=== PATIENT | female | born 1980 | race Caucasian/White ===

== ENCOUNTER 2016-08-12 12:18 | Emergency (ER) | payer OTHER ==
[~2016-08-12] VITALS: Ht 162.6 cm; Wt 62.0 kg
[~2016-08-12 12:18] MED LIST: BUSP1TAB PO; PERC5TAB12 PO; WELLTAB39 PO; XANA1TAB2 PO
[2016-08-12 12:22] VITALS: BP 123/78; PULSE 106; RESP 16; TEMP 98.1; O2SAT 95
[2016-08-12 15:42] VITALS: BP 113/71; PULSE 102; RESP 18; O2SAT 98
[2016-08-12] MEDS ORDERED: SODIUM CHLORIDE 0.9% FLUSH 5 ML FLUSH IVF PRN (16:15)
[2016-08-12] MEDS ORDERED: LORazepam 2 MG/ML VIAL IV PUSH ONE (16:15)
[2016-08-12 16:22] VITALS: RESP 18; O2SAT 97
[2016-08-12 16:35] LABS: BASOPHIL % 0.6 % (0.0-2.0); EOSINOPHIL % 0.6 % (0.0-4.0); HEMATOCRIT 36.3 % (35.0-46.0); HEMO FLAGS DIFF FINAL; LYMPH % 15.3 % (9.0-44.0); LYMPHOCYTE # 0.9 TH/MM3 (1.0-4.8); MEAN CORPUSCULAR HGB CONC 34.7 % (32.0-36.0); MONO % 5.6 % (0.0-8.0); NEUT % 77.9 % (16.0-70.0); PLATELET COUNT 229 TH/MM3 (150-450); RED BLOOD COUNT 3.82 MIL/MM3 (4.00-5.30); RED CELL DISTRIBUTION WIDTH 14.7 % (11.6-17.2); WHITE BLOOD COUNT 6.2 TH/MM3 (4.0-11.0)
--- NOTE | 2016-08-12 16:40 | RADHPO ---
EXAM DATE/TIME: 08/12/2016 16:19 [facility] COMPARISON: No previous studies available for comparison. INDICATIONS : Increased heart rate with shortness of breath. MEDICAL HISTORY : anxiety SURGICAL HISTORY : None. ENCOUNTER: Initial ACUITY: 1 day PAIN SCORE: 6/10 LOCATION: Bilateral upper chest FINDINGS: A single view of the chest demonstrates the lungs to be symmetrically aerated without evidence of mas s, infiltrate or effusion. The cardiomediastinal contours are unremarkable. Osseous structures are intact. CONCLUSION: No acute disease. Cole Bowers MD on August 12, 2016 at 16:38 Board Certified Radiologist. This report was verified electronically.
[2016-08-12 16:44] LABS: CHLORIDE 99 MEQ/L (98-107); POTASSIUM 3.9 MEQ/L (3.5-5.1); SODIUM (NA) 134 MEQ/L (136-145)
[2016-08-12 16:45] VITALS: BP_SYST 109; BP_DIAS 72; BP_DIAS 78; PULSE 84; RESP 16; O2SAT 95
[2016-08-12 16:47] LABS: ANION GAP 9 MEQ/L (5-15); BICARBONATE 25.8 MEQ/L (21.0-32.0); BLOOD UREA NITROGEN 7 MG/DL (7-18); MAGNESIUM 1.7 MG/DL (1.5-2.5)
[2016-08-12 16:48] LABS: APTT (PATIENT) 29.2 SEC (24.3-30.1); PROTHROMBIN TIME - PATIENT 10.5 SEC (9.8-11.6)
[2016-08-12 16:51] LABS: GLOMERULAR FILTRATION RATE 98 ML/MIN (>89)
[2016-08-12 17:00] LABS: CREATINE KINASE 100 U/L (26-192)
--- NOTE | 2016-08-12 17:15 | PD ---
HPI . Chest pain Chief Complaint: Cardiac Complaint Time Seen by Provider: 16:06 Travel History International Travel<30 days: No Contact w/Intl Traveler<30days: No Traveled to known affect area: No History of Present Illness HPI Patient presents with chief complaint of chest pain, palpitations, dizziness, shakiness sweating. Onset of symptoms was this morning. She reports previous similar symptoms. She reports no obvious exacerbating or relieving factors. [id number]: Chest DURATION: Today TIMING: Intermittent MODIFYING FACTORS: None PFSH Past Medical History Anxiety: Yes Depression: Yes Diminished Hearing: No Neurologic: Yes ("CONVERSION DISORDER") Thyroid Disease: Yes (PER PT) Tetanus Vaccination: > 5 Years Influenza Vaccination: No ?: Not LMP: 3 WEEKS AGO Past Surgical History Other Surgery: Yes (BREAST IMPLANTS) Social History Alcohol Use: Yes (1 BOTTLE WINE/DAILY) Tobacco Use: Yes (E-CIG, DAILY) Substance Use: Yes (MARIJUANA DAILY; LAST USED 08/08/16) Allergies-Medications (Allergen,Severity, Reaction): Uncoded Allergies: COLORED DYE (Allergy, Intermediate, RASH, 08/12/16) Reported Meds & Prescriptions Reported Meds & Active Scripts Active Percocet (Oxycodone-Acetaminophen) 5-325 mg Tab 1 Tab PO Q6H PRN Reported Wellbutrin Xl 24 HR (Bupropion HCl) 300 Mg Tab 300 Mg PO DAILY Buspirone (Buspirone HCl) 7.5 Mg Tab 7.5 Mg PO BID Xanax (Alprazolam) 1 Mg Tab 0.5 Mg PO BID Review of Systems Except as stated in HPI: all other systems reviewed are Neg Cardiovascular: Positive: Chest Pain or Discomfort, Palpitations Respiratory: Positive: Shortness of Breath Neurologic: Positive: Tremor Psychiatric: Positive: Anxiety Physical Exam Narrative GENERAL: Anxious appearing young woman in no acute distress. SKIN: Warm and dry. HEAD: Atraumatic. Normocephalic. EYES: Pupils equal and round. ENT: No nasal bleeding or discharge. Mucous membranes pink and moist. NECK: Trachea midline. Neck is supple. CARDIOVASCULAR: Regular rate and rhythm. Heart sounds are normal. RESPIRATORY: No accessory muscle use. Lungs are clear with full air movement throughout. GASTROINTESTINAL: Abdomen soft, non-tender, nondistended. MUSCULOSKELETAL: No obvious deformities. No edema. NEUROLOGICAL: Awake and alert. No obvious cranial nerve deficits. Motor grossly within normal limits. Normal speech. PSYCHIATRIC: Anxious appearing; insight and judgment normal. Data Data Last Documented VS Vital Signs Date Time Temp Pulse Resp B/P Pulse Ox O2 Delivery O2 Flow Rate FiO2 08/12/16 16:45 84 16 109/72 95 Room Air 109/78 08/12/16 12:22 98.1 Orders Electrocardiogram (08/12/16 12:31) Basic Metabolic Panel (Bmp) (08/12/16 16:07) Ckmb (Isoenzyme) Profile (08/12/16 16:07) Complete Blood Count With Diff (08/12/16 16:07) Magnesium (Mg) (08/12/16 16:07) Prothrombin Time / Inr (Pt) (08/12/16 16:07) Act Partial Throm Time (Ptt) (08/12/16 16:07) Troponin I (08/12/16 16:07) Chest, Single Ap (08/12/16 16:07) Ecg Monitoring (08/12/16 16:07) Bilateral Bp Monitoring (08/12/16 16:07) Iv Access Insert/Monitor (08/12/16 16:07) Oximetry (08/12/16 16:07) Oxygen Administration (08/12/16 16:07) Sodium Chloride 0.9% Flush (Ns Flush) (08/12/16 16:15) Lorazepam Inj (Ativan Inj) (08/12/16 16:15) Thyroid Stimulating Hormone (08/12/16 16:07) Labs Laboratory Tests Test 08/12/16 16:10 White Blood Count 6.2 TH/MM3 Red Blood Count 3.82 MIL/MM3 Hemoglobin 12.6 GM/DL Hematocrit 36.3 % Mean Corpuscular Volume 95.0 FL Mean Corpuscular Hemoglobin 33.0 PG Mean Corpuscular Hemoglobin 34.7 % Concent Red Cell Distribution Width 14.7 % Platelet Count 229 TH/MM3 Mean Platelet Volume 8.1 FL Neutrophils (%) (Auto) 77.9 % Lymphocytes (%) (Auto) 15.3 % Monocytes (%) (Auto) 5.6 % Eosinophils (%) (Auto) 0.6 % Basophils (%) (Auto) 0.6 % Neutrophils # (Auto) 5.0 TH/MM3 Lymphocytes # (Auto) 0.9 TH/MM3 Monocytes # (Auto) 0.3 TH/MM3 Eosinophils # (Auto) 0.0 TH/MM3 Basophils # (Auto) 0.0 TH/MM3 CBC Comment DIFF FINAL Differential Comment Prothrombin Time 10.5 SEC Prothromb Time International 1.0 RATIO Ratio Activated Partial 29.2 SEC Thromboplast Time Sodium Level 134 MEQ/L Potassium Level 3.9 MEQ/L Chloride Level 99 MEQ/L Carbon Dioxide Level 25.8 MEQ/L Anion Gap 9 MEQ/L Blood Urea Nitrogen 7 MG/DL Creatinine 0.68 MG/DL Estimat Glomerular Filtration 98 ML/MIN Rate Random Glucose 125 MG/DL Calcium Level 8.5 MG/DL Magnesium Level 1.7 MG/DL Total Creatine Kinase 100 U/L Troponin I LESS THAN 0.02 NG/ML Thyroid Stimulating Hormone 0.711 uIU/ML 3rd Gen [facility] Medical Decision Making Medical Screen Exam Complete: Yes Emergency Medical Condition: Yes Interpretation(s) EKG showed a sinus rhythm with no acute ischemic changes. She had a lot of artifact. Differential Diagnosis Differential diagnosis of chest pain includes but is not limited to musculoskeletal pain, pulmonary embolism, acute coronary syndrome, pneumonia, pleurisy Narrative Course Patient presents for chest pain, palpitations, dizziness, shakiness, sweating CBC & BMP Diagram 08/12/16 16:10 Cardiac enzymes are negative. TSH is normal. Chest x-ray is negative. I have personally reviewed the chest x-ray. Diagnosis Primary Impression: Chest pain Qualified Code: R07.9 - Chest pain, unspecified type Additional Impressions: Palpitations Anxiety disorder Qualified Code: F41.1 - Generalized anxiety disorder Patient Instructions: Anxiety (DC), General Instructions Disposition: 01 DISCHARGE HOME Condition: Stable Laura Carrington MD Aug 12, 2016 17:15
[2016-08-12 17:45] VITALS: BP 116/70; PULSE 84; RESP 16; O2SAT 98
--- NOTE | 2016-08-14 07:22 | EKG ---
Date Performed: 08/12/2016 Time Performed: 12:31:52 PTAGE: 36 years EKG: Sinus tachycardia Poor R wave progression - probable normal variant Low QRS voltages in pre cordial leads Compared to prior tracing no significant change although there is significant artifact. Recommend repeat tracing. Borderline ECG PREVIOUS TRACING : 01/14/2016 16.43 DOCTOR: Reilly Wagner Interpretating Date/Time 08/14/2016 07:21:16
== END 2016-08-12 18:34 | disposition home or self-care (01) ==
LOC: PHED 12:18
DX: R07.9 Chest pain, unspecified (principal); R00.2 Palpitations; F41.9 Anxiety disorder, unspecified; R00.0 Tachycardia, unspecified; R06.02 Shortness of breath
CPT/HCPCS: 71010; 80048; 82550; 83735; 84443; 84484; 85025; 85610; 85730; 93005; 96374; 99285; J2060

== ENCOUNTER 2016-10-13 06:00 | Emergency (ER) | payer OTHER ==
[~2016-10-13] VITALS: Ht 165.1 cm; Wt 58.9 kg
[2016-10-13 06:08] VITALS: BP 109/73; PULSE 134; RESP 16; TEMP 99.3; O2SAT 98
[2016-10-13] MEDS ORDERED: SODIUM CHLOR 0.9% 1000 ML INJ 1,000 ML IV SCH ×2 (06:23→06:45)
[2016-10-13] MEDS ORDERED: SODIUM CHLORIDE 0.9% FLUSH 10 ML FLUSH IV FLUSH PRN (06:30)
[2016-10-13] MEDS ORDERED: ONDANSETRON HCL 4 MG/2 ML VIAL IVP ONE (06:30)
[2016-10-13] MEDS ORDERED: PANTOPRAZOLE SODIUM 40 MG VIAL IVP ONE (06:30)
[2016-10-13] MEDS ORDERED: FAMOTIDINE 20 MG/2 ML VIAL IV PUSH ONE (06:30)
[2016-10-13] MEDS ORDERED: CLON.5 PO (06:31)
[2016-10-13] MEDS ORDERED: ZOLO25TA PO (06:31)
[2016-10-13] MEDS ORDERED: PRAZ1CAP PO (06:31)
[2016-10-13] MEDS ORDERED: BUSP5TAB PO (06:31)
--- NOTE | 2016-10-13 06:31 | PD ---
HPI Chief Complaint: Abdominal Pain Time Seen by Provider: 06:23 Travel History International Travel<30 days: No Contact w/Intl Traveler<30days: No Traveled to known affect area: No History of Present Illness HPI The patient is a 36-year-old female that complains of nausea, vomiting, possible fever and global headache for 4 hours. She has had loose stools for 2 days. She states she gets epigastric pain with vomiting. She states she drank a bottle and a half of wine earlier this evening. The patient states she does not believe she is although she does not use control. She has never had abdominal surgeries. She denies vomiting any blood. She denies any blood in her stool. [facility] Past Medical History Anxiety: Yes Depression: Yes Diminished Hearing: No Neurologic: Yes ("CONVERSION DISORDER") Thyroid Disease: Yes (PER PT) ?: Not LMP: 09/13/2016 Past Surgical History Other Surgery: Yes (BREAST IMPLANTS) Social History Alcohol Use: Yes (1 BOTTLE WINE/DAILY) Tobacco Use: Yes (E-CIG, DAILY) Substance Use: Yes (MARIJUANA DAILY; LAST USED 08/08/16) Allergies-Medications (Allergen,Severity, Reaction): Uncoded Allergies: COLORED DYE (Allergy, Intermediate, RASH, 08/12/16) Reported Meds & Prescriptions Reported Meds & Active Scripts Active Reported Klonopin (Clonazepam) 0.5 Mg Tab 0.5 Mg PO BID Prazosin (Prazosin HCl) 1 Mg Cap 1 Mg PO BID Zoloft (Sertraline HCl) 25 Mg Tab 25 Mg PO DAILY Buspirone (Buspirone HCl) 5 Mg Tab 5 Mg PO BID Review of Systems Except as stated in HPI: all other systems reviewed are Neg Physical Exam Narrative GENERAL: The patient is alert, oriented 3 and slight apparent distress with her midline epigastric discomfort. Her temperature is 99.3 with heart rate of 134 but the rest of her vital signs are normal. She does appear to be mildly dehydrated. SKIN: Focused skin assessment warm/dry. HEAD: Atraumatic. Normocephalic. EYES: Pupils equal and round. No scleral icterus. No injection or drainage. ENT: No nasal bleeding or discharge. Mucous membranes pink and slightly dry. NECK: Trachea midline. No JVD. CARDIOVASCULAR: Regular rate and rhythm. No murmur appreciated. RESPIRATORY: No accessory muscle use. Clear to auscultation. Breath sounds equal bilaterally. GASTROINTESTINAL: Abdomen soft, with tenderness to direct palpation in the midline epigastrium, nondistended. Hepatic and splenic margins not palpable. No guarding or rebound is present. MUSCULOSKELETAL: No obvious deformities. No clubbing. No cyanosis. No edema. NEUROLOGICAL: Awake and alert. No obvious cranial nerve deficits. Motor grossly within normal limits. Normal speech. PSYCHIATRIC: Appropriate mood and affect; insight and judgment normal. Data Data Last Documented VS Vital Signs Date Time Temp Pulse Resp B/P Pulse Ox O2 Delivery O2 Flow Rate FiO2 10/13/16 06:20 10/13/16 06:08 99.3 134 16 98 Orders Alcohol (Ethanol) (10/13/16 06:23) Complete Blood Count With Diff (10/13/16 06:23) Comprehensive Metabolic Panel (10/13/16 06:23) Lipase (10/13/16 06:23) Iv Access Insert/Monitor (10/13/16 06:23) Ecg Monitoring (10/13/16 06:23) Oximetry (10/13/16 06:23) Sodium Chloride 0.9% Flush (Ns Flush) (10/13/16 06:30) Urinalysis - C+S If Indicated (10/13/16 06:23) Ondansetron Inj (Zofran Inj) (10/13/16 06:30) Pantoprazole Inj (Protonix Inj) (10/13/16 06:30) Sodium Chlor 0.9% 1000 Ml Inj (Ns 1000 M (10/13/16 06:23) Sodium Chloride 0.9% Flush (Ns Flush) (10/13/16 06:30) Famotidine Inj (Pepcid Inj) (10/13/16 06:30) Sodium Chlor 0.9% 1000 Ml Inj (Ns 1000 M (10/13/16 06:45) Beta Hcg (Quant/Titer) (10/13/16 06:23) Acetaminophen (Tylenol) (10/13/16 07:00) Urine Culture (10/13/16 06:40) Labs Laboratory Tests Test 10/13/16 10/13/16 06:20 06:40 White Blood Count 9.4 TH/MM3 Red Blood Count 3.72 MIL/MM3 Hemoglobin 12.6 GM/DL Hematocrit 38.6 % Mean Corpuscular Volume 103.8 FL Mean Corpuscular Hemoglobin 33.9 PG Mean Corpuscular Hemoglobin 32.7 % Concent Red Cell Distribution Width 14.7 % Platelet Count 263 TH/MM3 Mean Platelet Volume 7.7 FL Neutrophils (%) (Auto) 88.2 % Lymphocytes (%) (Auto) 4.3 % Monocytes (%) (Auto) 4.1 % Eosinophils (%) (Auto) 0.6 % Basophils (%) (Auto) 2.8 % Neutrophils # (Auto) 8.2 TH/MM3 Lymphocytes # (Auto) 0.4 TH/MM3 Monocytes # (Auto) 0.4 TH/MM3 Eosinophils # (Auto) 0.1 TH/MM3 Basophils # (Auto) 0.3 TH/MM3 CBC Comment DIFF FINAL Differential Comment Sodium Level 139 MEQ/L Potassium Level 3.7 MEQ/L Chloride Level 104 MEQ/L Carbon Dioxide Level 24.8 MEQ/L Anion Gap 10 MEQ/L Blood Urea Nitrogen 7 MG/DL Random Glucose 94 MG/DL Calcium Level 8.6 MG/DL Albumin 4.4 GM/DL Lipase 66 U/L Urine Collection Type CLEAN CATCH Urine Color YELLOW Urine Turbidity SLIGHTY CLOUDY Urine pH 6.0 Urine Specific [place] 1.015 Urine Protein TRACE mg/dL Urine Glucose (UA) NEG mg/dL Urine Ketones NEG mg/dL Urine Occult Blood TRACE Urine Nitrite POS Urine Bilirubin NEG Urine Leukocyte Esterase SMALL Urine RBC 0-3 /hpf Urine WBC 9-14 /hpf Urine Squamous Epithelial 0-5 /hpf Cells Urine Bacteria MANY /hpf Microscopic Urinalysis Comment CULTURE INDICATED MDM Medical Decision Making Medical Screen Exam Complete: Yes Emergency Medical Condition: Yes Medical Record Reviewed: Yes Differential Diagnosis Gastroenteritis, gastritis, cholecystitis, pancreatitis, dehydration, electrolyte disorder, Narrative Course It is now 0714 and the patient is transferred to Dr. Beard. Mo Kraus MD October 13, 2016 06:31
[2016-10-13 06:57] LABS: AUTOMATED NEUTROPHIL # 8.2 TH/MM3 (1.8-7.7); BASOPHIL # 0.3 TH/MM3 (0-0.2); BASOPHIL % 2.8 % (0.0-2.0); CHLORIDE 104 MEQ/L (98-107); EOSINOPHIL # 0.1 TH/MM3 (0-0.4); EOSINOPHIL % 0.6 % (0.0-4.0); HEMATOCRIT 38.6 % (35.0-46.0); HEMO FLAGS DIFF FINAL; LYMPH % 4.3 % (9.0-44.0); LYMPHOCYTE # 0.4 TH/MM3 (1.0-4.8); MEAN CELL VOLUME 103.8 FL (80.0-100.0); MEAN CORPUSCULAR HEMOGLOBIN 33.9 PG (27.0-34.0); MEAN CORPUSCULAR HGB CONC 32.7 % (32.0-36.0); MONO % 4.1 % (0.0-8.0); NEUT % 88.2 % (16.0-70.0); PLATELET COUNT 263 TH/MM3 (150-450); POTASSIUM 3.7 MEQ/L (3.5-5.1); RED BLOOD COUNT 3.72 MIL/MM3 (4.00-5.30); RED CELL DISTRIBUTION WIDTH 14.7 % (11.6-17.2); SODIUM (NA) 139 MEQ/L (136-145); WHITE BLOOD COUNT 9.4 TH/MM3 (4.0-11.0)
[2016-10-13 07:00] LABS: ANION GAP 10 MEQ/L (5-15); BICARBONATE 24.8 MEQ/L (21.0-32.0)
[2016-10-13] MEDS ORDERED: ACETAMINOPHEN 325 MG TAB PO ONE (07:00)
[2016-10-13 07:01] LABS: BLOOD UREA NITROGEN 7 MG/DL (7-18)
[2016-10-13 07:02] LABS: BLOOD, URINE TRACE (NEG); GLUCOSE,URINE NEG (NEG); KETONE, URINE NEG (NEG)
[2016-10-13 07:03] LABS: METHOD OF COLLECTION CLEAN CATCH; NITRITE,URINE POS (NEG); URINE COLOR YELLOW (YELLW/STRAW)
[2016-10-13 07:04] LABS: ALT (GPT) 23 U/L (10-53); AST (GOT) 22 U/L (15-37); GLOMERULAR FILTRATION RATE 110 ML/MIN (>89)
[2016-10-13 07:05] VITALS: BP 107/69; PULSE 120; RESP 16; O2SAT 97; O2SAT 98
[2016-10-13 07:05] LABS: BACTERIA, URINE MANY /hpf; COMMENT (UR) CULTURE INDICATED; CULTURE IF INDICATED CULTURE INDICATED; RBC, URINE 0-3 /hpf (0-3); SQUAMOUS EPITHELIAL CELL URINE 0-5 /hpf (0-5)
[2016-10-13 07:05] LABS: TOTAL BILIRUBIN ADULT 0.7 MG/DL (0.2-1.0)
[2016-10-13 07:06] LABS: ALKALINE PHOSPHATASE 80 U/L (45-117)
[2016-10-13 07:09] LABS: BETA HCG QUANT LESS THAN 1 MIU/ML (0-5)
[2016-10-13] MEDS ORDERED: cefTRIAXone INJ 1,000 MG in SODIUM CHLORIDE 0.9% INJ 100 ML IV ONE (07:30)
[2016-10-13] MEDS ORDERED: SODIUM CHLOR 0.9% 1000 ML INJ 1,000 ML IV ONE (07:30)
--- NOTE | 2016-10-13 07:33 | PD ---
Physical Exam Narrative Received sign out from previous team to follow up labs and reevaluate. 36yo F with PMH of anxiety, alcohol abuse, epilepsy presents to the ED with c/o nausea, vomiting and lower abdominal pain. Denies any vaginal discharge. Low grade fever at home. Pt last drank alcohol last night. Pt given NS IVF x1, acetaminophen and pantoprazole by previous team. Labs reviewed, no leukocytosis. negative. Low lipase. Alcohol negative. UA showed positive nitrite. Pt given ceftriaxone 1gm IV. Pt reevaluated at bedside and is still very tender in suprapubic abdomen and a little on the right. No rebound tenderness or guarding. Will do CTa/p. Will give morphine and another dose of NS IVF. Pt's HR is still in the 120s. Pt given morphine and pain has resolved. Abdomen soft, NT/ND. CT a/p showed punctate nonobstructing bilateral renal calculi. HR is now 102bpm. Pt states her heart rate is always a little high. Pt feels better and tolerating PO. Return precautions given. Data Data Last Documented VS Vital Signs Date Time Temp Pulse Resp B/P Pulse Ox O2 Delivery O2 Flow Rate FiO2 10/13/16 08:30 16 10/13/16 08:25 122 92/58 97 Room Air 10/13/16 06:08 99.3 Orders Alcohol (Ethanol) (10/13/16 06:23) Complete Blood Count With Diff (10/13/16 06:23) Comprehensive Metabolic Panel (10/13/16 06:23) Lipase (10/13/16 06:23) Iv Access Insert/Monitor (10/13/16 06:23) Ecg Monitoring (10/13/16 06:23) Oximetry (10/13/16 06:23) Sodium Chloride 0.9% Flush (Ns Flush) (10/13/16 06:30) Urinalysis - C+S If Indicated (10/13/16 06:23) Ondansetron Inj (Zofran Inj) (10/13/16 06:30) Pantoprazole Inj (Protonix Inj) (10/13/16 06:30) Sodium Chlor 0.9% 1000 Ml Inj (Ns 1000 M (10/13/16 06:23) Sodium Chloride 0.9% Flush (Ns Flush) (10/13/16 06:30) Famotidine Inj (Pepcid Inj) (10/13/16 06:30) Sodium Chlor 0.9% 1000 Ml Inj (Ns 1000 M (10/13/16 06:45) Beta Hcg (Quant/Titer) (10/13/16 06:23) Acetaminophen (Tylenol) (10/13/16 07:00) Urine Culture (10/13/16 06:40) Ct Abd/Pel W Iv Contrast(Rout) (10/13/16 ) Ceftriaxone Inj (Rocephin Inj) (10/13/16 07:30) Sodium Chlor 0.9% 1000 Ml Inj (Ns 1000 M (10/13/16 07:30) Morphine Inj (Morphine Inj) (10/13/16 07:45) Iohexol 350 Inj (Omnipaque 350 Inj) (10/13/16 08:06) Labs Laboratory Tests Test 10/13/16 10/13/16 06:20 06:40 White Blood Count 9.4 TH/MM3 Red Blood Count 3.72 MIL/MM3 Hemoglobin 12.6 GM/DL Hematocrit 38.6 % Mean Corpuscular Volume 103.8 FL Mean Corpuscular Hemoglobin 33.9 PG Mean Corpuscular Hemoglobin 32.7 % Concent Red Cell Distribution Width 14.7 % Platelet Count 263 TH/MM3 Mean Platelet Volume 7.7 FL Neutrophils (%) (Auto) 88.2 % Lymphocytes (%) (Auto) 4.3 % Monocytes (%) (Auto) 4.1 % Eosinophils (%) (Auto) 0.6 % Basophils (%) (Auto) 2.8 % Neutrophils # (Auto) 8.2 TH/MM3 Lymphocytes # (Auto) 0.4 TH/MM3 Monocytes # (Auto) 0.4 TH/MM3 Eosinophils # (Auto) 0.1 TH/MM3 Basophils # (Auto) 0.3 TH/MM3 CBC Comment DIFF FINAL Differential Comment Sodium Level 139 MEQ/L Potassium Level 3.7 MEQ/L Chloride Level 104 MEQ/L Carbon Dioxide Level 24.8 MEQ/L Anion Gap 10 MEQ/L Blood Urea Nitrogen 7 MG/DL Creatinine 0.62 MG/DL Estimat Glomerular Filtration 110 ML/MIN Rate Random Glucose 94 MG/DL Calcium Level 8.6 MG/DL Total Bilirubin 0.7 MG/DL Aspartate Amino Transf 22 U/L (AST/SGOT) Alanine Aminotransferase 23 U/L (ALT/SGPT) Alkaline Phosphatase 80 U/L Total Protein 7.8 GM/DL Albumin 4.4 GM/DL Lipase 66 U/L Human Chorionic Gonadotropin, LESS THAN 1 Quant MIU/ML Ethyl Alcohol Level LESS THAN 3 MG/DL Urine Collection Type CLEAN CATCH Urine Color YELLOW Urine Turbidity SLIGHTY CLOUDY Urine pH 6.0 Urine Specific [place] 1.015 Urine Protein TRACE mg/dL Urine Glucose (UA) NEG mg/dL Urine Ketones NEG mg/dL Urine Occult Blood TRACE Urine Nitrite POS Urine Bilirubin NEG Urine Leukocyte Esterase SMALL Urine RBC 0-3 /hpf Urine WBC 9-14 /hpf Urine Squamous Epithelial 0-5 /hpf Cells Urine Bacteria MANY /hpf Microscopic Urinalysis Comment CULTURE INDICATED MDM Supervised Visit with NOY: No Interpretation(s) Laboratory Tests Test 10/13/16 10/13/16 06:20 06:40 White Blood Count 9.4 TH/MM3 (4.0-11.0) Red Blood Count 3.72 MIL/MM3 (4.00-5.30) Hemoglobin 12.6 GM/DL (11.6-15.3) Hematocrit 38.6 % (35.0-46.0) Mean Corpuscular Volume 103.8 FL (80.0-100.0) Mean Corpuscular Hemoglobin 33.9 PG (27.0-34.0) Mean Corpuscular Hemoglobin 32.7 % Concent (32.0-36.0) Red Cell Distribution Width 14.7 % (11.6-17.2) Platelet Count 263 TH/MM3 (150-450) Mean Platelet Volume 7.7 FL (7.0-11.0) Neutrophils (%) (Auto) 88.2 % (16.0-70.0) Lymphocytes (%) (Auto) 4.3 % (9.0-44.0) Monocytes (%) (Auto) 4.1 % (0.0-8.0) Eosinophils (%) (Auto) 0.6 % (0.0-4.0) Basophils (%) (Auto) 2.8 % (0.0-2.0) Neutrophils # (Auto) 8.2 TH/MM3 (1.8-7.7) Lymphocytes # (Auto) 0.4 TH/MM3 (1.0-4.8) Monocytes # (Auto) 0.4 TH/MM3 (0-0.9) Eosinophils # (Auto) 0.1 TH/MM3 (0-0.4) Basophils # (Auto) 0.3 TH/MM3 (0-0.2) CBC Comment DIFF FINAL Differential Comment Sodium Level 139 MEQ/L (136-145) Potassium Level 3.7 MEQ/L (3.5-5.1) Chloride Level 104 MEQ/L (98-107) Carbon Dioxide Level 24.8 MEQ/L (21.0-32.0) Anion Gap 10 MEQ/L (5-15) Blood Urea Nitrogen 7 MG/DL (7-18) Creatinine 0.62 MG/DL (0.50-1.00) Estimat Glomerular Filtration 110 ML/MIN Rate (>89) Random Glucose 94 MG/DL (74-106) Calcium Level 8.6 MG/DL (8.5-10.1) Total Bilirubin 0.7 MG/DL (0.2-1.0) Aspartate Amino Transf 22 U/L (15-37) (AST/SGOT) Alanine Aminotransferase 23 U/L (10-53) (ALT/SGPT) Alkaline Phosphatase 80 U/L (45-117) Total Protein 7.8 GM/DL (6.4-8.2) Albumin 4.4 GM/DL (3.4-5.0) Lipase 66 U/L (73-393) Human Chorionic Gonadotropin, LESS THAN 1 Quant MIU/ML (0-5) Ethyl Alcohol Level LESS THAN 3 MG/DL (0-5) Urine Collection Type CLEAN CATCH Urine Color YELLOW (YELLW/STRAW) Urine Turbidity SLIGHTY CLOUDY (CLEAR) Urine pH 6.0 (5.0-8.5) Urine Specific [place] 1.015 (1.002-1.035) Urine Protein TRACE mg/dL (NEG-TRACE) Urine Glucose (UA) NEG mg/dL (NEG) Urine Ketones NEG mg/dL (NEG) Urine Occult Blood TRACE (NEG) Urine Nitrite POS (NEG) Urine Bilirubin NEG (NEG) Urine Leukocyte Esterase SMALL (NEG) Urine RBC 0-3 /hpf (0-3) Urine WBC 9-14 /hpf (0-5) Urine Squamous Epithelial 0-5 /hpf (0-5) Cells Urine Bacteria MANY /hpf (NONE) Microscopic Urinalysis Comment CULTURE INDICATED Last Impressions Abdomen/Pelvis CT 10/13/16 0000 Signed Impressions: Service Date/Time: Thursday, October 13, 2016 07:51 - CONCLUSION: 1. Punctate nonobstructing bilateral renal calculi. 2. Mild hepatic steatosis with benign low densities. Mitchell Velasquez MD Diagnosis Primary Impression: Cystitis Patient Instructions: General Instructions Departure Forms: Tests/Procedures Additional Instruction: Please follow up with your PMD in 3-7 days. Return to the ED if symptoms worsen. Med/Other Pt SpecificInfo: Prescription(s) given Scripts Acetaminophen (Acetaminophen Extra Strength)500 Mg [id number] Mg PO Q6H PRN (PAIN SCALE 1 TO 4) #20 TAB Ref 0 Prov:Nat Beard DO 10/13/16 Ciprofloxacin (Cipro)500 Mg [id number] Mg PO BID 7 Days Ref 0 Prov:Nat Beard DO 10/13/16 Disposition: 01 DISCHARGE HOME Condition: Stable Nat Beard DO October 13, 2016 07:33
[2016-10-13] MEDS ORDERED: MORPHINE SULFATE 4 MG/ML INJ IV PUSH ONE (07:45)
[2016-10-13] MEDS: SODIUM CHLORIDE 0.9% FLUSH 10 ML FLUSH IV FLUSH PRN ×2 (07:48→09:11)
[2016-10-13] MEDS ORDERED: IOHEXOL 350 MG/ML 10 ML VIAL (for RAD DIAG) IV ONE (08:06)
--- NOTE | 2016-10-13 08:19 | RADHPO ---
EXAM DATE/TIME: 10/13/2016 07:51 [facility] COMPARISON: No previous studies available for comparison. INDICATIONS : Bilateral lower abdominal pain and fever. IV CONTRAST: 80 cc Omnipaque 350 (iohexol) IV ORAL CONTRAST: No oral contrast ingested. RADIATION DOSE: 5.84 CTDIvol (mGy) MEDICAL HISTORY : None SURGICAL HISTORY : None. ENCOUNTER: Initial ACUITY: 1 day PAIN SCALE: 5/10 LOCATION: Bilateral lower quadrant TECHNIQUE: Volumetric scanning of the abdomen and pelvis was performed. Using automated exposure control and ad justment of the mA and/or kV according to patient size, radiation dose was kept as low as reasonably achievable to obtain optimal diagnostic quality images. FINDINGS: LOWER LUNGS: The visualized lower lungs are clear. LIVER: Decreased density. There is no dilation of the biliary tree. No calcified gallstones. Low-density l esions are seen. Mild fatty infiltration. SPLEEN: Normal size without lesion. PANCREAS: Within normal limits. KIDNEYS: Normal in size and shape. There is no mass or hydronephrosis. Numerous bilateral renal calculi measu ring 2-5 mm in size. ADRENAL GLANDS: Within normal limits. VASCULAR: There is no aortic aneurysm. BOWEL/MESENTERY: The stomach, small bowel, and colon demonstrate no acute abnormality. There is no free intraperitone al air or fluid. Normal appendix. ABDOMINAL WALL: Within normal limits. RETROPERITONEUM: There is no lymphadenopathy. BLADDER: No wall thickening or mass. REPRODUCTIVE: Within normal limits. INGUINAL: There is no lymphadenopathy or hernia. MUSCULOSKELETAL: Within normal limits for patient age. CONCLUSION: 1. Punctate nonobstructing bilateral renal calculi. 2. Mild hepatic steatosis with benign low densities. Mitchell Velasquez MD on October 13, 2016 at 8:11 Board Certified Radiologist. This report was verified electronically.
[2016-10-13 08:25] VITALS: BP 92/58; PULSE 122; RESP 16; O2SAT 97
[2016-10-13 09:10] VITALS: BP 105/67; PULSE 114; RESP 16; O2SAT 99
[2016-10-13] MEDS ORDERED: CIPR-9 PO (09:41)
[2016-10-13] MEDS ORDERED: ACET500T36 PO (09:41)
[2016-10-13 09:59] VITALS: BP 102/68
== END 2016-10-13 10:07 | disposition home or self-care (01) ==
LOC: PHED 06:00
DX: N30.90 Cystitis, unspecified without hematuria (principal); B96.20 Unspecified Escherichia coli [E. coli] as the cause of diseases classified elsewhere
CPT/HCPCS: 74177; 80053; 80307; 81001; 83690; 84702; 85025; 87077; 87086; 87186; 96361; 96365; 96375; 99284; C9113; J0696; J2270; J2405; J7030; Q9967